=== PATIENT | female | born 1940 | race Two or more races ===

== ENCOUNTER 2018-05-01 13:28 | Outpatient (CLI) | payer MEDICARE, OTHER | END 2018-05-01 23:59 | disposition home or self-care (01) | LOC: WOU 13:28 | PROVIDERS: ATTEND Podiatrist Foot & Ankle Surgery | DX: L29.8 Other pruritus (principal); I87.2 Venous insufficiency (chronic) (peripheral) | CPT/HCPCS: G0463; Z7610 ==

== ENCOUNTER 2018-05-16 14:50 | Outpatient (CLI) | payer MEDICARE, OTHER | END 2018-05-16 23:59 | disposition home or self-care (01) | LOC: WOU 14:50 | PROVIDERS: ATTEND Podiatrist Foot & Ankle Surgery | DX: I87.2 Venous insufficiency (chronic) (peripheral) (principal); R60.0 Localized edema; B35.1 Tinea unguium; E11.9 Type 2 diabetes mellitus without complications; I10 Essential (primary) hypertension | CPT/HCPCS: G0463; Z7610 ==